=== PATIENT | male | born 1960 | race Asian ===

== ENCOUNTER 2019-02-09 00:42 | Emergency (ER) | payer OTHER ==
[2019-02-09] MEDS ORDERED: TETANUS/DIPHTHERIA/PERTUSSIS 0.5 ML SYRINGE IM ONE (00:58)
[2019-02-09 01:00] VITALS: BP 165/93
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
== END 2019-02-09 01:23 | disposition home or self-care (01) ==
LOC: ED 00:42
DX: S01.81XA Laceration without foreign body of other part of head, initial encounter (principal); S00.31XA Abrasion of nose, initial encounter; S00.83XA Contusion of other part of head, initial encounter; Y04.2XXA Assault by strike against or bumped into by another person, initial encounter; Y93.89 Activity, other specified; Z23 Encounter for immunization
CPT/HCPCS: 90471; 99282